=== PATIENT | female | born 1945 | race Caucasian/White ===

== ENCOUNTER 2017-10-27 08:15 | Outpatient (CLI) | payer MEDICARE ==
[2017-10-27 11:06] LABS: BASOPHILS # (AUTO) 0.1 10^3/uL (0.0-0.1); BASOPHILS % (AUTO) 1.3 %; EOSINOPHILS # (AUTO) 0.1 10^3/uL (0.0-0.7); EOSINOPHILS % (AUTO) 1.9 %; HGB - HEMOGLOBIN 12.9 g/dL (12.0-16.0); LYMPHOCYTES # (AUTO) 1.8 10^3/uL (1.5-3.5); LYMPHOCYTES % (AUTO) 22.5 %; MEAN CORPUSCULAR HEMOGLOBIN 28.7 pg (27.0-31.0); MEAN CORPUSCULAR HGB CONC 32.7 g/dL (32.0-36.0); MEAN CORPUSCULAR VOLUME 87.6 fL (81.0-99.0); MONOCYTES # (AUTO) 0.5 10^3/uL (0.0-1.0); MONOCYTES % (AUTO) 6.8 %; NEUTROPHILS # (AUTO) 5.4 10^3/uL (1.5-6.6); NEUTROPHILS % (AUTO) 67.5 %; PLT - PLATELET COUNT 369 10^3/uL (130-450); RED CELL DISTRIBUTION WIDTH 16.3 % (12.0-15.0)
[2017-10-27 11:25] LABS: ALBUMIN 4.6 g/dL (3.2-5.5); ALBUMIN/GLOBULIN RATIO 1.5 (1.0-2.2); ALKALINE PHOSPHATASE 72 IU/L (42-121); ALT ALANINE AMINOTRANSFERASE 15 IU/L (10-60); AST ASPARTATE AMINOTRANSFERASE 22 IU/L (10-42); BILIRUBIN,TOTAL 0.7 mg/dL (0.2-1.0); BUN - BLOOD UREA NITROGEN 12 mg/dL (6-20); CALCIUM 9.5 mg/dL (8.5-10.3); CARBON DIOXIDE - CO2 28 mmol/L (21-32); CHLORIDE 100 mmol/L (101-111); CHOL/HDL RATIO 3.7 (<4.4); CHOLESTEROL 237 mg/dL; CREATININE 0.6 mg/dL (0.4-1.0); GFR - MDRD 99 (>89); GLUCOSE 100 mg/dL (70-100); HDL CHOLESTEROL 64 mg/dL; LDL CHOLESTEROL,CALCULATED 146 mg/dL; LDL/HDL RATIO 2.3 (<4.4); SODIUM 136 mmol/L (135-145); TOTAL PROTEIN 7.6 g/dL (6.7-8.2); VLDL CHOLESTEROL 27 mg/dL
== END 2017-10-27 08:16 | disposition home or self-care (01) ==
LOC: LAB.F 08:15
PROVIDERS: ATTEND Family Medicine
DX: E87.6 Hypokalemia (principal); E78.5 Hyperlipidemia, unspecified; Z86.2 Personal history of diseases of the blood and blood-forming organs and certain disorders involving the immune mechanism; I10 Essential (primary) hypertension; K21.9 Gastro-esophageal reflux disease without esophagitis
CPT/HCPCS: 36415; 80053; 80061; 83721; 84443; 85025

== ENCOUNTER 2017-11-03 12:42 | Outpatient (CLI) | payer MEDICARE ==
--- NOTE | 2017-11-03 15:42 | XRAY Report ---
Procedure Date: 11/03/2017 Accession Number: [id number] / [id number] Procedure: XRS - Hip w/Pelvis 2-3V LT CPT Code: FULL RESULT: EXAM: LEFT HIP AND PELVIS RADIOGRAPHY EXAM DATE: 11/03/2017 12:59 PM. HISTORY: Hip pain, left. COMPARISONS: None. TECHNIQUE: 1 view of the pelvis and 1 view of the hip. FINDINGS: Bones: Normal. No fracture or bone lesion. Joints: There is bilateral narrowing of the femoral acetabular joints. 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 The sacroiliac joints and pubic symphysis are unremarkable. Soft Tissues: Normal. No soft tissue swelling. IMPRESSION: Degenerative changes with question of femoral acetabular impingement syndrome on the left as described. RADIA
== END 2017-11-03 12:43 | disposition home or self-care (01) ==
LOC: DI.S 12:42
PROVIDERS: ATTEND Family Medicine
DX: M16.12 Unilateral primary osteoarthritis, left hip (principal)

== ENCOUNTER 2017-11-14 08:00 | Outpatient (CLI) | payer MEDICARE | END 2017-11-14 08:01 | disposition home or self-care (01) | LOC: LAB.R 08:00 | PROVIDERS: ATTEND Internal Medicine Gastroenterology | DX: R19.7 Diarrhea, unspecified (principal) | CPT/HCPCS: 81599; 87493 ==

== ENCOUNTER 2018-01-19 10:12 | Outpatient (CLI) | payer MEDICARE ==
[2018-01-19] MEDS ORDERED: IOTHALAMATE MEGLUMINE 50 ML VIAL ONE (10:19)
[2018-01-19] MEDS ORDERED: BUPIVACAINE 0.25% PF 10 ML VIAL SUBQ ONE ×2 (11:06)
[2018-01-19] MEDS ORDERED: IOTHALAMATE MEGLUMINE 50 ML VIAL IVP ONE ×2 (11:06)
[2018-01-19] MEDS ORDERED: TRIAMCINOLONE 40 MG/ML VIAL IM ONE (11:06)
--- NOTE | 2018-02-05 16:09 | XRAY Report ---
Reason: HIP PAIN,LEFT Procedure Date: 01/19/2018 Accession Number: [id number] / [id number] Procedure: [place] - Inj/Aspiration Major Joint CPT Code: FULL RESULT: EXAM: LEFT HIP FLUOROSCOPIC INJECTION FOR PAIN EXAM DATE: 01/19/2018 11:02 AM. REFERRING PROVIDER: Doni Mauricio CLINICAL HISTORY: HIP PAIN, LEFT. COMPARISON: None. TECHNIQUE: The risks, benefits and alternatives of this examination were discussed in detail with the patient and her daughter. Risks of bleeding, infection, and increasing discomfort in the left hip joint were included in the discussion. The patient appeared to understand, and signed, dated, and timed an informed consent document, which was also signed by me and a witness. The skin was prepped with chlorhexidine gluconate and draped in the usual sterile manner, and 5 mL of 1% buffered lidocaine was used for local analgesia. Under fluoroscopic control, a 22-gauge needle was placed into the left hip joint capsule. After achieving low resistance to the injection of lidocaine, 1 mL of iodine-based radiographic contrast was injected. Then a combination of 5 mL of 0.5% ropivacaine and 1 mL (40 mg) of Depo-Medrol was injected without difficulty. The needle was removed, and the patient was released. The patient and daughter were instructed in the potential signs and symptoms for infection or septic arthritis. The patient was asked to call the referring physician or go to the emergency room if these signs and symptoms should appear. Fluoroscopy Time: 21 seconds. Number of Images: 1 IMPRESSION: Successful injection of left hip for pain relief as noted above. RADIA
== END 2018-01-19 10:13 | disposition home or self-care (01) ==
LOC: DI 10:12
PROVIDERS: ATTEND Orthopaedic Surgery Sports Medicine
DX: M25.552 Pain in left hip (principal)
CPT/HCPCS: 20610; Q9961

== ENCOUNTER 2018-02-19 15:16 | Outpatient (CLI) | payer MEDICARE ==
--- NOTE | 2018-02-20 08:44 | Mammography Report ---
Reason: SCREENING MAMMO Procedure Date: 02/19/2018 Accession Number: [id number] / [id number] Procedure: JENIFER - Screening Mammo w/Justin CPT Code: FULL RESULT: EXAM: Screening Mammo w/Justin DATE: 02/19/2018 3:55 PM CLINICAL HISTORY: Screening encounter. History of early menses. TECHNIQUE: Bilateral CC and MLO views were obtained. COMPARISON: 01/23/2017 through 07/06/2013. FINDINGS: The breasts demonstrate diffuse fatty replacement bilaterally. No suspicious masses, clustered microcalcifications, or regions of architectural distortion are identified. IMPRESSION: Negative examination RECOMMENDATION: Routine annual screening unless otherwise clinically indicated. BIRADS CATEGORY 1: Negative STANDARD QUALIFYING STATEMENTS: 1. This examination was not reviewed with the aid of Computer-Aided Detection (CAD). 2. A negative or benign imaging report should not preclude biopsy if clinically suspicious findings are present. 3. Dense breasts may obscure an underlying neoplasm. 4. This examination was reviewed with the aid of 3D breast imaging (tomosynthesis).
== END 2018-02-19 15:17 | disposition home or self-care (01) ==
LOC: DI 15:16
DX: Z12.31 Encounter for screening mammogram for malignant neoplasm of breast (principal)
CPT/HCPCS: 77063; 77067

== ENCOUNTER 2019-08-07 16:38 | Outpatient (CLI) | payer MEDICARE | END 2019-08-07 16:39 | disposition home or self-care (01) | LOC: COV 16:38 | PROVIDERS: ATTEND Family Medicine | DX: M79.10 Myalgia, unspecified site (principal); R53.83 Other fatigue; R68.83 Chills (without fever); R43.8 Other disturbances of smell and taste | CPT/HCPCS: 81599 ==

== ENCOUNTER 2019-08-09 07:00 | Outpatient (CLI) | payer MEDICARE ==
[2019-08-09 18:11] LABS: BASOPHILS # (AUTO) 0.1 10^3/uL (0.0-0.1); BASOPHILS % (AUTO) 0.8 %; EOSINOPHILS # (AUTO) 0.1 10^3/uL (0.0-0.7); EOSINOPHILS % (AUTO) 0.7 %; HGB - HEMOGLOBIN 11.3 g/dL (12.0-16.0); LYMPHOCYTES # (AUTO) 1.5 10^3/uL (1.5-3.5); MEAN CORPUSCULAR HEMOGLOBIN 27.5 pg (27.0-31.0); MEAN CORPUSCULAR HGB CONC 30.5 g/dL (32.0-36.0); MONOCYTES # (AUTO) 0.6 10^3/uL (0.0-1.0); MONOCYTES % (AUTO) 6.4 %; NEUTROPHILS # (AUTO) 6.8 10^3/uL (1.5-6.6); NEUTROPHILS % (AUTO) 74.8 %; PLT - PLATELET COUNT 658 10^3/uL (130-450); RED BLOOD COUNT 4.11 10^6/uL (4.20-5.40); RED CELL DISTRIBUTION WIDTH 13.8 % (12.0-15.0); WHITE BLOOD COUNT 9.1 x10^3/uL (4.8-10.8)
[2019-08-09 18:41] LABS: ALBUMIN/GLOBULIN RATIO 1.1 (1.0-2.2); ALKALINE PHOSPHATASE 90 IU/L (42-121); ALT ALANINE AMINOTRANSFERASE < 10 IU/L (10-60); AST ASPARTATE AMINOTRANSFERASE 12 IU/L (10-42); BILIRUBIN,TOTAL 0.4 mg/dL (0.2-1.0); BUN - BLOOD UREA NITROGEN 13 mg/dL (6-20); CALCIUM 9.3 mg/dL (8.5-10.3); CARBON DIOXIDE - CO2 25 mmol/L (21-32); CHLORIDE 95 mmol/L (101-111); CREATININE 0.7 mg/dL (0.4-1.0); GLUCOSE 113 mg/dL (70-100); SODIUM 132 mmol/L (135-145); TOTAL PROTEIN 7.7 g/dL (6.7-8.2)
== END 2019-08-09 23:59 | disposition home or self-care (01) ==
LOC: LAB.WCP 07:00
PROVIDERS: ATTEND Family Medicine
DX: K51.90 Ulcerative colitis, unspecified, without complications (principal); R19.7 Diarrhea, unspecified
CPT/HCPCS: 36415; 80053; 85025; 85651

== ENCOUNTER 2019-08-14 05:35 | Outpatient (CLI) | payer MEDICARE | END 2019-08-14 23:59 | disposition home or self-care (01) | LOC: LAB.R 05:35 | PROVIDERS: ATTEND Family Medicine | DX: K51.90 Ulcerative colitis, unspecified, without complications (principal) | CPT/HCPCS: 81599; 83630; 87045; 87046; 87329; 87493 ==

== ENCOUNTER 2019-09-11 15:31 | Outpatient (CLI) | payer MEDICARE ==
[2019-09-11 20:11] LABS: BASOPHILS # (AUTO) 0.1 10^3/uL (0.0-0.1); BASOPHILS % (AUTO) 0.8 %; EOSINOPHILS # (AUTO) 0.1 10^3/uL (0.0-0.7); EOSINOPHILS % (AUTO) 0.8 %; HGB - HEMOGLOBIN 10.8 g/dL (12.0-16.0); LYMPHOCYTES # (AUTO) 1.5 10^3/uL (1.5-3.5); MEAN CORPUSCULAR HEMOGLOBIN 28.3 pg (27.0-31.0); MEAN CORPUSCULAR VOLUME 91.1 fL (81.0-99.0); MEAN PLATELET VOLUME 9.1 fL (7.9-10.8); MONOCYTES # (AUTO) 0.7 10^3/uL (0.0-1.0); MONOCYTES % (AUTO) 7.9 %; NEUTROPHILS # (AUTO) 6.1 10^3/uL (1.5-6.6); NEUTROPHILS % (AUTO) 72.1 %; PLT - PLATELET COUNT 501 10^3/uL (130-450); RED BLOOD COUNT 3.82 10^6/uL (4.20-5.40); RED CELL DISTRIBUTION WIDTH 14.6 % (12.0-15.0); WHITE BLOOD COUNT 8.4 x10^3/uL (4.8-10.8)
[2019-09-11 20:16] LABS: RHEUMATOID FACTOR NEGATIVE (Negative)
[2019-09-11 20:27] LABS: ALBUMIN 3.7 g/dL (3.2-5.5); ALKALINE PHOSPHATASE 83 IU/L (42-121); ALT ALANINE AMINOTRANSFERASE < 10 IU/L (10-60); AST ASPARTATE AMINOTRANSFERASE 13 IU/L (10-42); BILIRUBIN,TOTAL 0.5 mg/dL (0.2-1.0); BUN - BLOOD UREA NITROGEN 13 mg/dL (6-20); CALCIUM 9.2 mg/dL (8.5-10.3); CARBON DIOXIDE - CO2 28 mmol/L (21-32); CHLORIDE 95 mmol/L (101-111); CREATININE 0.6 mg/dL (0.4-1.0); CRP - C-REACTIVE PROTEIN 5.7 mg/dL (0-1.0); GLUCOSE 110 mg/dL (70-100); SODIUM 133 mmol/L (135-145); TOTAL PROTEIN 7.4 g/dL (6.7-8.2)
[2019-09-14 19:39] LABS: ANA SCREEN NEGATIVE (NEGATIVE)
== END 2019-09-11 15:32 | disposition home or self-care (01) ==
LOC: LAB.S 15:31
PROVIDERS: ATTEND Family Medicine
DX: R70.0 Elevated erythrocyte sedimentation rate (principal); M17.0 Bilateral primary osteoarthritis of knee; K51.90 Ulcerative colitis, unspecified, without complications; M19.071 Primary osteoarthritis, right ankle and foot; M19.012 Primary osteoarthritis, left shoulder
CPT/HCPCS: 36415; 80053; 85025; 85651; 86038; 86140; 86200; 86430

== ENCOUNTER 2019-09-29 15:55 | Emergency (ER) | payer MEDICARE ==
[2019-09-29 16:30] LABS: BASOPHILS # (AUTO) 0.1 10^3/uL (0.0-0.1); BASOPHILS % (AUTO) 0.5 %; EOSINOPHILS # (AUTO) 0.2 10^3/uL (0.0-0.7); EOSINOPHILS % (AUTO) 1.7 %; HGB - HEMOGLOBIN 10.6 g/dL (12.0-16.0); LYMPHOCYTES # (AUTO) 1.5 10^3/uL (1.5-3.5); LYMPHOCYTES % (AUTO) 14.7 %; MEAN CORPUSCULAR HEMOGLOBIN 28.6 pg (27.0-31.0); MEAN CORPUSCULAR HGB CONC 31.8 g/dL (32.0-36.0); MEAN CORPUSCULAR VOLUME 89.8 fL (81.0-99.0); MEAN PLATELET VOLUME 8.7 fL (7.9-10.8); MONOCYTES # (AUTO) 0.9 10^3/uL (0.0-1.0); MONOCYTES % (AUTO) 8.5 %; NEUTROPHILS # (AUTO) 7.5 10^3/uL (1.5-6.6); NEUTROPHILS % (AUTO) 74.1 %; PLT - PLATELET COUNT 429 10^3/uL (130-450); RED BLOOD COUNT 3.71 10^6/uL (4.20-5.40); RED CELL DISTRIBUTION WIDTH 14.8 % (12.0-15.0); WHITE BLOOD COUNT 10.2 x10^3/uL (4.8-10.8)
[2019-09-29] MEDS ORDERED: SODIUM CHLORIDE 0.9% 1,000 ML IV STA ×2 (16:30)
--- NOTE | 2019-09-29 16:38 | ED Physician Documentation ---
History of Present Illness - Stated complaint Stated Complaint: LIGHTHEADED/DIZZY/SOA - Chief complaint Chief Complaint: General - History obtained from History obtained from: Patient, Family - History of Present Illness Pain level max: 0 Pain level now: 0 - Additonal information Additional information: 73-year-old female presents to the emergency department stating that she has had intermittent lightheadedness for the past several months. Occasionally has difficulty breathing as well. She states that her dizziness lasted all morning this morning. Does not feel like things are spinning around her. Does not feel off balance or have neurological deficits. She states she feels more near syncopal and lightheaded. No changes to her medications recently. Has seen her doctor about this. She states that she has a cystic structure in her left ovary and a cyst in her liver. She is currently being worked up for these things. She had her potassium increased recently as well. Better with rest, worse with standing. No recent surgeries or travel. No leg swelling. Review of Systems Ten Systems: 10 systems reviewed and negative Constitutional: denies: Fever, Chills Nose: denies: Rhinorrhea / runny nose, Congestion Throat: denies: Sore throat Respiratory: denies: Cough Skin: denies: Rash Musculoskeletal: denies: Neck pain, Back pain Neurologic: denies: Headache PD PAST MEDICAL HISTORY - Past Medical History Past Medical History: Yes Cardiovascular: Hypertension - Present Medications Home Medications: Ambulatory Orders Medication Instructions Recorded Confirmed Cephalexin [Keflex] 500 mg PO Q6H #20 capsule 09/29/19 - Allergies Allergies/Adverse Reactions: Allergies Allergy/AdvReac Type Severity Reaction Status Date / Time No Known Drug Allergies Allergy Verified 09/29/19 16:14 - Living Situation Living Situation: reports: With family Living Arrangement: reports: At home - Social History Does the pt smoke?: No Does the pt have substance abuse?: No - Family History Family history: reports: Non contributory PD ED PE NORMAL - Vitals Vital signs reviewed: Yes - General General: Alert and oriented X 3, No acute distress - HEENT HEENT: Atraumatic, PERRL, EOMI, Moist mucous membranes - Neck Neck: Supple, no meningeal sign - Cardiac Cardiac: Other (Tachycardic, Regular) - Respiratory Respiratory: No respiratory distress, Clear bilaterally - Abdomen Abdomen: Soft, Non tender, Non distended - Back Back: No CVA TTP, No spinal TTP - Derm Derm: Warm and dry - Extremities Extremities: No edema, No calf tenderness / cord - Neuro Neuro: Alert and oriented X 3, fibre technologist 2-12 intact, No motor deficit, No sensory deficit, Normal speech, Other (Normal gait. Normal cerebellar test.) Eye Opening: Spontaneous Motor: Obeys Commands Verbal: Oriented GCS Score: 15 - Psych Psych: Normal mood, Normal affect Results - Vitals Vitals: Vital Signs - 24 hr 09/29/19 09/29/19 16:06 18:14 Temperature 36.8 C Heart Rate 115 H 96 Respiratory 18 20 Rate Blood Pressure 195/87 H 160/90 H O2 Saturation 99 100 Oxygen O2 Source Room air - EKG (time done) 1602 Rate: Rate (enter#) (107) Rhythm: Sinus tachycardia [place]: Normal Intervals: Normal DC QRS: Normal Ischemia: Normal ST segments - Labs Labs: Laboratory Tests 09/29/19 09/29/19 09/29/19 16:20 16:20 16:20 WBC 10.2 RBC 3.71 L Hgb 10.6 L Hct 33.3 L MCV 89.8 MCH 28.6 MCHC 31.8 L RDW 14.8 Plt Count 429 MPV 8.7 Neut # (Auto) 7.5 H Lymph # (Auto) 1.5 [place] # (Auto) 0.9 Eos # (Auto) 0.2 Baso # (Auto) 0.1 Absolute Nucleated RBC 0.00 Nucleated RBC % 0.0 Sodium 134 L Potassium 3.2 L Chloride 99 L Carbon Dioxide 25 Anion Gap 10.0 BUN 15 Creatinine 0.6 Estimated GFR (MDRD) 98 Glucose 120 H Calcium 9.0 Phosphorus 3.1 Magnesium 2.2 Total Bilirubin 0.4 AST 15 ALT 12 Alkaline Phosphatase 96 Troponin I High Sens 2.7 Total Protein 7.5 Albumin 3.6 Globulin 3.9 Albumin/Globulin Ratio 0.9 L Lipase 26 TSH Free T4 Urine Color Urine Clarity Urine pH Ur Specific [place] Urine Protein Urine Glucose (UA) Urine Ketones Urine Occult Blood Urine Nitrite Urine Bilirubin Urine Urobilinogen Ur Leukocyte Esterase Urine RBC Urine WBC Ur Squamous Epith Cells Urine Bacteria Ur Microscopic Review Urine Culture Comments 09/29/19 09/29/19 16:20 17:26 WBC RBC Hgb Hct MCV MCH MCHC RDW Plt Count MPV Neut # (Auto) Lymph # (Auto) [place] # (Auto) Eos # (Auto) Baso # (Auto) Absolute Nucleated RBC Nucleated RBC % Sodium Potassium Chloride Carbon Dioxide Anion Gap BUN Creatinine Estimated GFR (MDRD) Glucose Calcium Phosphorus Magnesium Total Bilirubin AST ALT Alkaline Phosphatase Troponin I High Sens Total Protein Albumin Globulin Albumin/Globulin Ratio Lipase TSH 2.34 Free T4 1.15 Urine Color LIGHT YELLOW Urine Clarity HAZY Urine pH 5.5 Ur Specific [place] <=1.005 Urine Protein NEGATIVE Urine Glucose (UA) NEGATIVE Urine Ketones NEGATIVE Urine Occult Blood TRACE-LYSE Urine Nitrite NEGATIVE Urine Bilirubin NEGATIVE Urine Urobilinogen 0.2 (NORMAL) Ur Leukocyte Esterase SMALL H Urine RBC 0-5 Urine WBC 6-10 H Ur Squamous Epith Cells NONE SEEN Urine Bacteria Rare Ur Microscopic Review INDICATED Urine Culture Comments INDICATED - Rads (name of study) CT pulmonary angiogram Radiology: Prelim report reviewed, EMP read contemporaneously, See rad report (No PE) Chest x-ray Radiology: Prelim report reviewed, EMP read contemporaneously, See rad report (No acute disease) PD MEDICAL DECISION MAKING - ED course Complexity details: reviewed results, re-evaluated patient, considered differential, d/w patient, d/w family ED course: Patient with lightheadedness today. No arrhythmias on telemetry. Did have sinus tachycardia upon arrival, this improved with IV fluids. Concern regarding the tachycardia and dyspnea over the past few weeks, therefore a CT pulmonary angiogram was performed to rule out a PE. No PE. No acute findings on laboratory testing other than a UTI and some dehydration. She did feel better after IV fluids. We will prescribe antibiotics for home as well and have her follow-up with her doctor. Patient counseled regarding signs and symptoms for which I believe and urgent re-evaluation would be necessary. Patient with good understanding of and agreement to plan and is comfortable going home at this time This document was made in part using voice recognition software. While efforts are made to proofread this document, sound alike and grammatical errors may occur. Normal neurological exam. NIH stroke scale of 0 Departure - Departure Disposition: 01 Home, Self Care Clinical Impression: Dehydration UTI (urinary tract infection) Qualifiers: Urinary tract infection type: acute cystitis Hematuria presence: without hematuria Qualified Code(s): N30.00 - Acute cystitis without hematuria Condition: Good Instructions: ED Dehydration, ED UTI Cystitis Female Follow-Up: Roberto Mccrary MD [Credentialed Staff Provider] - Baldev Camara MD [Primary Care Provider] - Vincent White DO [Physician No Access] - Darrell Bynum MD [Physician No Access] - Prescriptions: Cephalexin [Keflex] 500 mg PO Q6H #20 capsule Comments: Take all antibiotics until gone. Return if you worsen. Follow-up with your doctor for further care. . Your [facility] was [facility] to [facility] in [place] Discharge Date/Time: 09/29/19 18:40
[2019-09-29 16:46] LABS: ALBUMIN 3.6 g/dL (3.2-5.5); ALBUMIN/GLOBULIN RATIO 0.9 (1.0-2.2); BILIRUBIN,TOTAL 0.4 mg/dL (0.2-1.0); CREATININE 0.6 mg/dL (0.4-1.0); MAGNESIUM 2.2 mg/dL (1.7-2.8); PHOSPHORUS 3.1 mg/dL (2.5-4.6); TOTAL PROTEIN 7.5 g/dL (6.7-8.2)
--- NOTE | 2019-09-29 16:48 | XRAY Report ---
PROCEDURE: Chest 1 View X-Ray INDICATIONS: Chest Pain TECHNIQUE: One view of the chest was acquired. COMPARISON: None FINDINGS: Surgical changes and devices: None. Lungs and pleura: There is trace blunting of the left costophrenic angle. Mediastinum: Mediastinal contours appear normal. Heart size is mildly prominent. Bones and chest wall: No suspicious bony lesions. Overlying soft tissues appear unremarkable. IMPRESSION: Trace left costophrenic angle blunting possibly related to effusion versus scarring. Reviewed by: Sunita Nguyen MD on 09/29/2019 4:46 PM PDT Approved by: Sunita Nguyen MD on 09/29/2019 4:46 PM PDT Station ID: [id number]
[2019-09-29] MEDS ORDERED: IOVERSOL 320 100 ML VIAL IVP ONE ×2 (17:04→18:15)
--- NOTE | 2019-09-29 17:38 | CT Report ---
PROCEDURE: ANGIO CHEST W/WO INDICATIONS: dyspnea, tachycardia CONTRAST: IV CONTRAST: Optiray 320 ml: 100 PO CONTRAST: *NO PO CONTRAST TECHNIQUE: After the administration of intravenous contrast, 2 mm thick sections acquired from the pulmonary api dejah to the posterior costophrenic angles. 3-dimensional maximum intensity projection (MIP) coronal a nd sagittal reformats were then acquired through the thorax. For radiation dose reduction, the follow ing was used: automated exposure control, adjustment of mA and/or kV according to patient size. COMPARISON: Chest x-ray 09/29/2019. FINDINGS: Image quality: Excellent. Pulmonary arteries: Pulmonary arteries are normal in size, and demonstrate no intraluminal filling d efects to suggest central pulmonary embolism. Lungs and pleura: Lungs are clear. No pleural effusions or pneumothorax. Central and peripheral ai rways are patent. Mediastinum: Heart size is enlarged, without pericardial effusion. No mediastinal or hilar adenopat hy. Thoracic aorta is normal in caliber and enhancement. Esophagus is normal in caliber, without hi atal hernia. Bones and chest wall: No suspicious bony lesions. Ribs and thoracic spine appear intact throughout. The thyroid is normal. No axillary or supraclavicular adenopathy. Abdomen: Visualized upper abdominal solid organs appear normal in the early arterial phase of enhanc ement. IMPRESSION: 1. No pulmonary embolism. Lungs are clear. Reviewed by: Sunita Nguyen MD on 09/29/2019 5:37 PM PDT Approved by: Sunita Nguyen MD on 09/29/2019 5:37 PM PDT Station ID: [id number]
[2019-09-29 17:42] LABS: BILIRUBIN,URINE NEGATIVE (NEGATIVE); GLUCOSE, URINE (UA) NEGATIVE (NEGATIVE); KETONES,URINE (UA) NEGATIVE (NEGATIVE); LEUKOCYTE ESTERASE, URINE SMALL (NEGATIVE); NITRITE,URINE NEGATIVE (NEGATIVE); OCCULT BLOOD,URINE TRACE-LYSE (NEGATIVE); PH,URINE 5.5 PH (5.0-7.5); PROTEIN,URINE NEGATIVE (NEGATIVE); UROBILINOGEN,URINE 0.2 (NORMAL) E.U./dL (NORMAL)
[2019-09-29 17:52] LABS: CLARITY,URINE HAZY (CLEAR)
[2019-09-29 17:57] LABS: RBC,URINE 0-5 /HPF (0-5); SQUAMOUS EPITHELIAL CELL,UR NONE SEEN (<= Few)
[2019-09-29 17:58] LABS: BACTERIA,URINE Rare /HPF (None Seen)
[2019-09-29 18:13] LABS: THYROID STIMULATING HORMONE 2.34 uIU/mL (0.34-5.60)
[2019-09-29] MEDS ORDERED: cephALEXin 250 MG CAPSULE PO STA (18:13)
[2019-09-29 18:15] LABS: FREE T4 (FREE THYROXINE) 1.15 ng/dL (0.58-1.64)
[2019-09-29 18:33] VITALS: BP 160/90
== END 2019-09-29 18:40 | disposition home or self-care (01) ==
LOC: ED 15:55
DX: E86.0 Dehydration (principal); N30.00 Acute cystitis without hematuria; R00.0 Tachycardia, unspecified; I10 Essential (primary) hypertension
CPT/HCPCS: 36415; 71045; 71275; 80053; 81001; 83690; 83735; 84100; 84439; 84443; 84484; 85025; 93005; 96360; 96361; 99284; A9270; Q9967; 81003; 87086

== ENCOUNTER 2019-10-02 11:54 | Emergency (ER) | payer MEDICARE ==
--- NOTE | 2019-10-02 12:32 | ED Physician Documentation ---
History of Present Illness - Stated complaint Stated Complaint: WEAKNESS/SOA - Chief complaint Chief Complaint: General - History obtained from History obtained from: Patient, Family - Additonal information Additional information: 73-year-old female returns to the emergency department with quite a lengthy list of concerns. She was seen here 3 days ago with a complaint of feeling weak fatigued and dizzy. She reports to me that she was diagnosed as being severely dehydrated and that she had a UTI. She was prescribed Keflex on discharge and reports compliance with this medication. In addition to routine labs while in the ED 3 days ago she also had a CT angio of her chest that did not show any pulmonary embolus. Patient reports that she feels short of air. However her sats are 99% and she speaks almost without stopping. She reports that she has discussed with her doctor in the past the right foot and ankle swelling and she is concerned that she could have a blood clot there. I discussed the possibility of obtaining an ultrasound to evaluate for DVT in the ED, however she does not want to wait more than an hour or two for her work up to be completed. I did discuss with her that the CT ago 3 days ago was negative for a pulmonary embolus She states that she is unable to drink twelve 12 ounce glasses of water a day and is requesting hydration via saline infusion It seems the root of her etiology is that she feels fatigued, dizzy, and is not sure that the UTI is getting better and she is concerned that she may be dehydrated Review of Systems Constitutional: reports: Fatigue. denies: Fever, Chills Cardiac: reports: Pedal edema (right foot only). denies: Chest pain / pressure, Palpitations Respiratory: reports: Dyspnea. denies: Cough, Hemoptysis, Wheezing GI: reports: Nausea. denies: Abdominal Pain, Vomiting, Diarrhea, Hematemesis, Bloody / black stool : denies: Dysuria, Incontinent Skin: denies: Rash, Lesions Musculoskeletal: denies: Neck pain, Back pain Neurologic: reports: Generalized weakness. denies: Focal weakness, Numbness, Difficulty speaking, Near syncope, Syncope, Seizure, Confused PD PAST MEDICAL HISTORY - Past Medical History Past Medical History: Yes Cardiovascular: Hypertension Neuro: None HEENT: None - Present Medications Home Medications: Ambulatory Orders Medication Instructions Recorded Confirmed Cephalexin [Keflex] 500 mg PO Q6H #20 capsule 09/29/19 - Allergies Allergies/Adverse Reactions: Allergies Allergy/AdvReac Type Severity Reaction Status Date / Time No Known Drug Allergies Allergy Verified 10/02/19 12:12 - Social History Does the pt smoke?: No Smoking Status: Never smoker Does the pt have substance abuse?: No PD ED PE EXPANDED - General General: Alert, No acute distress, Well developed/nourished - HEENT HEENT: Atraumatic, PERRL, EOMI, Moist mucous membranes - Neck Neck: Supple w/out meningeal sx. No: Adenopathy - Cardiac Cardiac: Regular Rate, Normal pulses, Radial strong equal, Femoral strong equal, Cap refill < 2 sec. No: Murmur Present - Respiratory Respiratory: Clear to ausultation gwen. No: Distress, Stridor, Gasping - Abdomen Abdomen: Normal Bowel sounds. No: Distended, Tender to palpation - Back Back: Normal exam. No: CVA TTP right, CVA TTP left - Derm Derm: Normal color, Warm and dry. No: Urticaria, Emboli - Extremities Extremities: Pedal edema R, Sensory intact, Vascular intact (2+ DP pulses bilaterally) - Neuro Neuro: Alert and Oriented X 3, CNII-XII intact. No: Weakness - GCS Eye Opening: Spontaneous Motor: Obeys Commands Verbal: Oriented Total: 15 Results - Vitals Vitals: Vital Signs - 24 hr 10/02/19 11:56 Temperature 36.5 C Heart Rate 96 Respiratory 16 Rate Blood Pressure 175/91 H O2 Saturation 100 Oxygen O2 Source Room air - EKG (time done) 1232 Rate: Rate (enter#) (102), Tachy Rhythm: Sinus tachycardia [place]: Normal Intervals: Normal [place] QRS: Normal Ischemia: Normal ST segments Compare to prior EKG: Unchanged from prior EKG Computer interpretation: Agree with computer - Labs Labs: Laboratory Tests 10/02/19 10/02/19 10/02/19 12:53 13:02 13:02 WBC 9.3 RBC 3.76 L Hgb 10.7 L Hct 33.9 L MCV 90.2 MCH 28.5 MCHC 31.6 L RDW 14.6 Plt Count 434 MPV 8.8 Neut # (Auto) 7.3 H Lymph # (Auto) 1.1 L [place] # (Auto) 0.7 Eos # (Auto) 0.1 Baso # (Auto) 0.1 Absolute Nucleated RBC 0.00 Nucleated RBC % 0.0 Sodium 134 L Potassium 3.4 L Chloride 98 L Carbon Dioxide 24 Anion Gap 12.0 BUN 10 Creatinine 0.7 Estimated GFR (MDRD) 82 L Glucose 119 H Calcium 9.0 Total Bilirubin 0.7 AST 15 ALT 11 Alkaline Phosphatase 87 Troponin I High Sens B-Natriuretic Peptide Total Protein 7.5 Albumin 3.5 Globulin 4.0 Albumin/Globulin Ratio 0.9 L Lipase 25 Urine Color YELLOW Urine Clarity CLEAR Urine pH 8.0 H Ur Specific [place] 1.010 Urine Protein NEGATIVE Urine Glucose (UA) NEGATIVE Urine Ketones NEGATIVE Urine Occult Blood NEGATIVE Urine Nitrite NEGATIVE Urine Bilirubin NEGATIVE Urine Urobilinogen 0.2 (NORMAL) Ur Leukocyte Esterase NEGATIVE Ur Microscopic Review NOT INDICATED Urine Culture Comments NOT INDICATED 10/02/19 10/02/19 13:02 13:02 WBC RBC Hgb Hct MCV MCH MCHC RDW Plt Count MPV Neut # (Auto) Lymph # (Auto) [place] # (Auto) Eos # (Auto) Baso # (Auto) Absolute Nucleated RBC Nucleated RBC % Sodium Potassium Chloride Carbon Dioxide Anion Gap BUN Creatinine Estimated GFR (MDRD) Glucose Calcium Total Bilirubin AST ALT Alkaline Phosphatase Troponin I High Sens 2.3 B-Natriuretic Peptide 23 Total Protein Albumin Globulin Albumin/Globulin Ratio Lipase Urine Color Urine Clarity Urine pH Ur Specific [place] Urine Protein Urine Glucose (UA) Urine Ketones Urine Occult Blood Urine Nitrite Urine Bilirubin Urine Urobilinogen Ur Leukocyte Esterase Ur Microscopic Review Urine Culture Comments PD MEDICAL DECISION MAKING - ED course Complexity details: reviewed results, re-evaluated patient, d/w patient, d/w family ED course: 73-year-old female returns to the emergency department with a chief complaint that she feels fatigued and dizzy. She is unsure if the antibiotics are effective in managing her urinary tract infection. She is concerned that she may be dehydrated. - Patient appears remarkably well. She has no dyspnea on exam. Her vital signs are also fairly normal. She presented with some initial mild tachycardia on EKG but after rest in the ED her resting heart rate is in the 80s and 90s. CT scan completed 3 days ago showed no findings of a pulmonary embolus. No indication to repeat imaging today - Her labs are reviewed in full. Though she has mild pedal edema on the right leg she declined an ultrasound today as she did not want to wait in the emergency department for imaging. However my suspicion for a DVT in her is exceedingly low. Her BNP is normal she has no crackles or hypoxia I doubt congestive heart failure. - Her urine also shows improvement from 3 days ago. I have recommended that she continue the course of Keflex and that she should finish the entire course - Neurologically she is intact. She has close follow-up scheduled with her primary care doctor in 4 days time. Departure - Departure Disposition: 01 Home, Self Care Clinical Impression: Pedal edema Fatigue Qualifiers: Fatigue type: unspecified Qualified Code(s): R53.83 - Other fatigue Condition: Stable Comments: Rhonda your labs today are essentially normal. You are well hydrated. Good job keep drinking the water like you are.Please finish the full course of the antibiotics. Your urine today shows that the infection is improved.
[2019-10-02 13:07] LABS: BILIRUBIN,URINE NEGATIVE (NEGATIVE); GLUCOSE, URINE (UA) NEGATIVE (NEGATIVE); KETONES,URINE (UA) NEGATIVE (NEGATIVE); LEUKOCYTE ESTERASE, URINE NEGATIVE (NEGATIVE); NITRITE,URINE NEGATIVE (NEGATIVE); OCCULT BLOOD,URINE NEGATIVE (NEGATIVE); PROTEIN,URINE NEGATIVE (NEGATIVE); UROBILINOGEN,URINE 0.2 (NORMAL) E.U./dL (NORMAL)
[2019-10-02 13:08] LABS: CLARITY,URINE CLEAR (CLEAR)
[2019-10-02 13:11] LABS: BASOPHILS # (AUTO) 0.1 10^3/uL (0.0-0.1); BASOPHILS % (AUTO) 0.6 %; EOSINOPHILS # (AUTO) 0.1 10^3/uL (0.0-0.7); EOSINOPHILS % (AUTO) 1.5 %; HGB - HEMOGLOBIN 10.7 g/dL (12.0-16.0); LYMPHOCYTES # (AUTO) 1.1 10^3/uL (1.5-3.5); LYMPHOCYTES % (AUTO) 11.8 %; MEAN CORPUSCULAR HEMOGLOBIN 28.5 pg (27.0-31.0); MEAN CORPUSCULAR HGB CONC 31.6 g/dL (32.0-36.0); MEAN CORPUSCULAR VOLUME 90.2 fL (81.0-99.0); MEAN PLATELET VOLUME 8.8 fL (7.9-10.8); MONOCYTES # (AUTO) 0.7 10^3/uL (0.0-1.0); MONOCYTES % (AUTO) 7.2 %; NEUTROPHILS # (AUTO) 7.3 10^3/uL (1.5-6.6); NEUTROPHILS % (AUTO) 78.5 %; PLT - PLATELET COUNT 434 10^3/uL (130-450); RED BLOOD COUNT 3.76 10^6/uL (4.20-5.40); RED CELL DISTRIBUTION WIDTH 14.6 % (12.0-15.0); WHITE BLOOD COUNT 9.3 x10^3/uL (4.8-10.8)
[2019-10-02 13:31] LABS: ALBUMIN 3.5 g/dL (3.2-5.5); ALBUMIN/GLOBULIN RATIO 0.9 (1.0-2.2); BILIRUBIN,TOTAL 0.7 mg/dL (0.2-1.0); CREATININE 0.7 mg/dL (0.4-1.0); TOTAL PROTEIN 7.5 g/dL (6.7-8.2)
[2019-10-02 13:51] VITALS: BP 140/60
== END 2019-10-02 14:02 | disposition home or self-care (01) ==
LOC: ED 11:54
DX: R53.83 Other fatigue (principal); R42 Dizziness and giddiness; R00.0 Tachycardia, unspecified; I10 Essential (primary) hypertension; R60.0 Localized edema
CPT/HCPCS: 36415; 80053; 81001; 81003; 83690; 83880; 84484; 85025; 87086; 93005; 99283

== ENCOUNTER 2019-11-05 12:44 | Outpatient (CLI) | payer MEDICARE ==
--- NOTE | 2019-11-05 16:07 | MRI Report ---
PROCEDURE: Ankle RT W/O INDICATIONS: CHRONIC RIGHT ANKLE PAIN TECHNIQUE: Noncontrast coronal and sagittal T1 spin echo and STIR; axial T1 spin echo and T2 fast spin echo with fat saturation through the right ankle. COMPARISON: Ankle radiographs dated 10/19/2019. FINDINGS: Image quality: Excellent. Bones and joints: No acute fracture. Marrow edema is present in the navicular without definite articular surface collapse. Medial chronic talar dome osteochondral defect which measures approximately 9 mm on coronal pulse seq uences. Tibiotalar joint effusion. There is diffuse hindfoot and midfoot degenerative spurring and subchondral sclerosis. Subcutaneous e reyna about the dorsal forefoot. Medial structures: Deltoid ligament not well seen, probably reflecting chronic sprain. There are nearby chronic corticat ed ossicles adjacent to the medial malleolus. Spring ligament intact. Posterior tibialis intact, although there is tenosynovitis. Flexor digitorum longus intact Flexor hallucis longus intact Posterior tibial neurovascular bundle appears normal within the tarsal tunnel, without extrinsic mass effect. Lateral structures: Anterior talofibular ligament intact. Calcaneofibular ligament intact. Posterior talofibular ligament intact. Anterior tibiofibular ligament intact. Posterior tibiofibular ligament intact. Peroneus longus normal Peroneus brevis normal. There is mild peroneal tenosynovitis. Sinus tarsi demonstrates heterogeneous appearance, with loss of the normal fat signal intensity. Anterior structures: Dorsal talonavicular ligament intact. Tibialis anterior normal Extensor hallucis longus normal. Extensor digitorum longus normal Posterior and plantar structures: Achilles tendon intact. Medial band plantar fasciitis, chronic. IMPRESSION: 9 mm medial talar dome osteochondral defect (as radiographically described). Tibiotalar joint effusio n Additional marrow edema present within the navicular raising possibility of Otherwise Veronica-Farr disease. No articular surface collapse seen. Marrow contusion in the differen tial. Posterior tibialis tenosynovitis. Medial band plantar fasciitis, chronic. Mild peroneal tenosynovitis Heterogeneous signal within the sinus tarsi raising possibility of sinus tarsi syndrome, although onl y in the appropriate clinical setting. Reviewed by: Barron Finch MD on 11/05/2019 4:06 PM PDT Approved by: Barron Finch MD on 11/05/2019 4:06 PM PDT Station ID: [id number]
== END 2019-11-05 12:45 | disposition home or self-care (01) ==
LOC: DI 12:44
PROVIDERS: ATTEND Podiatrist
DX: M21.6X1 Other acquired deformities of right foot (principal); M65.9 Synovitis and tenosynovitis, unspecified; M72.2 Plantar fascial fibromatosis; R93.6 Abnormal findings on diagnostic imaging of limbs

== ENCOUNTER 2020-02-04 11:09 | Outpatient (CLI) | payer MEDICARE ==
--- NOTE | 2020-02-04 16:12 | XRAY Report ---
PROCEDURE: Hand 2 View BILAT INDICATIONS: RHUMITOID ARTHRITIS TECHNIQUE: 2 views of the hand(s) acquired. COMPARISON: None FINDINGS: Bones: No acute fractures or dislocations. There is mild deformity of the distal third metacarpal h ead suggestive of old injury. No suspicious bony lesions. Scattered areas of moderate IP degenerativ e narrowing, slightly more prominent on the right. Mild to moderate right greater than left first CMC degenerative narrowing. Areas of scattered paratracheal or osteophytes as well as periarticular luce ncies are noted, right greater than left. Soft tissues: No suspicious soft tissue calcifications. IMPRESSION: Arthritic changes as above more prominent on the right. Reviewed by: Sunita Nguyen MD on 02/04/2020 4:11 PM PST Approved by: Sunita Nguyen MD on 02/04/2020 4:11 PM PST Station ID: [id number]
--- NOTE | 2020-02-04 16:14 | XRAY Report ---
PROCEDURE: Foot 2 View BILAT INDICATIONS: RHUMITOID ARTHRITIS TECHNIQUE: 2 views of the foot were acquired. COMPARISON: X-ray right foot 10/19/2019 scattered areas of IP degenerative narrowing relatively symmet rical. Minimal calcaneal osteophytes are present bilaterally, left greater than right. There is moder ate first MTP degenerative narrowing bilaterally. FINDINGS: Bones: No fractures or dislocations. No suspicious bony lesions. Scattered IP degenerative narrowi ng is present, mild to moderate, relatively symmetrical. Minimal periarticular osteophytes are presen t. There is a very minimal appearance of scattered periarticular lucencies particularly at the DIP rigoberto ints bilaterally. Soft tissues: No tibiotalar joint effusion. Achilles tendon appears normal. IMPRESSION: Scattered IP degenerative narrowing as above relatively symmetrical suggestive of arthritis. Reviewed by: Sunita Nguyen MD on 02/04/2020 4:13 PM PST Approved by: Sunita Nguyen MD on 02/04/2020 4:13 PM PST Station ID: [id number]
== END 2020-02-04 11:10 | disposition home or self-care (01) ==
LOC: DI.S 11:09
PROVIDERS: ATTEND Internal Medicine Rheumatology
DX: M18.0 Bilateral primary osteoarthritis of first carpometacarpal joints (principal); M19.042 Primary osteoarthritis, left hand; M19.041 Primary osteoarthritis, right hand; M19.072 Primary osteoarthritis, left ankle and foot; M19.071 Primary osteoarthritis, right ankle and foot

== ENCOUNTER 2020-03-23 13:48 | Outpatient (CLI) | payer MEDICARE ==
[2020-03-23] MEDS ORDERED: IOVERSOL 320 50 ML VIAL ONE (14:01)
[2020-03-23] MEDS ORDERED: IOVERSOL 320 100 ML VIAL IVP ONE ×2 (14:01→15:34)
[2020-03-23 14:15] LABS: CALCIUM 9.6 mg/dL (8.5-10.3); CREATININE 0.6 mg/dL (0.4-1.0)
[2020-03-23] MEDS ORDERED: IOVERSOL 320 50 ML VIAL PO ONE (15:34)
--- NOTE | 2020-03-23 16:28 | CT Report ---
PROCEDURE: Abdomen/Pelvis W INDICATIONS: LIVER MASS, ADNEXAL MASS CONTRAST: IV CONTRAST: Optiray 320 ml: 100 PO CONTRAST: Optiray 320 ml50 TECHNIQUE: After the administration of oral and intravenous contrast, 5 mm thick sections acquired from the diap hragms to the symphysis. 5 mm thick coronal and sagittal reformats were acquired. For radiation dos e reduction, the following was used: automated exposure control, adjustment of mA and/or kV accordin g to patient size. COMPARISON: Abdominal and pelvic ultrasound 10/21/2019. CT pulmonary angiogram 09/29/2019. CT abdomen a nd pelvis 09/05/2019. FINDINGS: Image quality: Excellent. ABDOMEN: Lung bases: Lung bases are clear. Heart size is normal. Small hiatal hernia. Solid organs: Liver and spleen are normal in size. Segment 7 subcapsular hypodensity measuring 0.8 c m, (06/05), previously 0.9 cm. This appears well-circumscribed on the coronal images. No enhancement a ppreciated on this portal venous phase. Gallbladder is nondistended. No calcified gallstones. Biliar y system is non dilated. Pancreas enhances normally. No adrenal nodules or mass. Kidneys demonstra te normal size and enhancement, without hydronephrosis. No obvious kidney stones. Peritoneum and bowel: Bowel loops demonstrate normal wall thickness and caliber. The appendix is at the upper limits of normal in caliber measuring 7 mm but is gas-filled. No convincing periappendiceal inflammatory change. No free fluid or air. Nodes and vessels: No retroperitoneal or mesenteric adenopathy by size criteria. Aorta and inferior vena cava are normal in size. Miscellaneous: No ventral hernias. PELVIS: Genitourinary: Bladder wall thickness is normal. Left ovarian homogeneous appearing cyst measuring 3 cm, (), previously 3 cm on 09/05/2019. Suspect small subserosal posterior uterine fibroid, unchan ged. Miscellaneous: No inguinal hernias or adenopathy. Bones: No suspicious bony lesions. Possible intraosseous hemangioma at L5, unchanged. No vertebral body compression fractures. IMPRESSION: 1. Segment 7 subcapsular subcentimeter hypodense focus is unchanged since August 2019. This appears wel l-circumscribed on the coronal images and likely represents a benign cyst or hemangioma. -If remote cross-sectional imaging can be acquired long-term stability may be able to be demonstrated . -Follow-up CT abdomen with IV contrast or multiphase three-phase liver CT could also be utilized to d emonstrate stability or for further evaluation. -MRI of the liver with IV contrast could be considered to most definitive further characterize if cli nically indicated. 2. Left ovarian cyst measuring 3 cm is unchanged since August 2019. This appeared simple on the prior u ltrasound. 3. Possible small uterine fibroid which is unchanged. Alternatively this could represent trace free f luid in the pelvis. Reviewed by: Augusto Ovalles MD on 03/23/2020 3:27 PM AKST Approved by: Augusto Ovalles MD on 03/23/2020 3:27 PM AK Station ID: [id number]
== END 2020-03-23 13:49 | disposition home or self-care (01) ==
LOC: DI 13:48
PROVIDERS: ATTEND Family Medicine
DX: N83.202 Unspecified ovarian cyst, left side (principal); R93.5 Abnormal findings on diagnostic imaging of other abdominal regions, including retroperitoneum; M13.0 Polyarthritis, unspecified; D64.9 Anemia, unspecified; E87.6 Hypokalemia
CPT/HCPCS: 36415; 74177; 80048; Q9967

== ENCOUNTER 2020-05-11 12:44 | Outpatient (CLI) | payer MEDICARE ==
--- NOTE | 2020-05-11 15:28 | DEXA Report ---
PROCEDURE: Dexa Spine and/or Hip INDICATIONS: POST MENOPAUSAL STATUS TECHNIQUE: Dual energy x-ray absorptiometry (DXA) was performed on a [employer] System. Regions measur ed are the AP Spine, femoral neck, and if needed forearm. COMPARISON: None. FINDINGS: Lumbar Spine: Bone Mineral Density 1.202 g/cm/cm,T score 0.2 Left Femoral Neck: Bone Mineral Density 0.710 g/cm/cm, T score -2.4 (T score greater or equal to -1.0: NORMAL) (T score from -1.1 to -2.4: OSTEOPENIA) (T score less than or equal to -2.5 to: OSTEOPOROSIS) Impression: Osteopenia Patients with diagnosis of osteoporosis or osteopenia should have regular bone mineral density assess ment. For those eligible for Medicare, routine testing is allowed once every 2 years. Testing frequ ency can be increased for patients who have rapidly progressing disease or for those who are receivin g medical therapy to restore bone mass. Reviewed by: Barron Finch MD on 05/11/2020 3:27 PM PST Approved by: Barron Finch MD on 05/11/2020 3:27 PM PST Station ID: [id number]
== END 2020-05-11 12:45 | disposition home or self-care (01) ==
LOC: DI 12:44
PROVIDERS: ATTEND Internal Medicine
DX: M85.89 Other specified disorders of bone density and structure, multiple sites (principal); Z78.0 Asymptomatic menopausal state

== ENCOUNTER 2020-08-18 09:59 | Outpatient (CLI) | payer MEDICARE ==
[2020-08-18 15:26] LABS: BASOPHILS # (AUTO) 0.1 10^3/uL (0.0-0.1); EOSINOPHILS # (AUTO) 0.1 10^3/uL (0.0-0.7); EOSINOPHILS % (AUTO) 1.5 %; HCT - HEMATOCRIT 39.6 % (37.0-47.0); HGB - HEMOGLOBIN 12.3 g/dL (12.0-16.0); LYMPHOCYTES # (AUTO) 1.4 10^3/uL (1.5-3.5); LYMPHOCYTES % (AUTO) 24.1 %; MEAN CORPUSCULAR HEMOGLOBIN 28.8 pg (27.0-31.0); MEAN CORPUSCULAR HGB CONC 31.1 g/dL (32.0-36.0); MEAN CORPUSCULAR VOLUME 92.7 fL (81.0-99.0); MEAN PLATELET VOLUME 10.1 fL (7.9-10.8); MONOCYTES # (AUTO) 0.5 10^3/uL (0.0-1.0); MONOCYTES % (AUTO) 7.7 %; NEUTROPHILS # (AUTO) 3.9 10^3/uL (1.5-6.6); NEUTROPHILS % (AUTO) 65.5 %; PLT - PLATELET COUNT 307 10^3/uL (130-450); RED BLOOD COUNT 4.27 10^6/uL (4.20-5.40); RED CELL DISTRIBUTION WIDTH 14.9 % (12.0-15.0); WHITE BLOOD COUNT 5.9 x10^3/uL (4.8-10.8)
[2020-08-18 15:49] LABS: ALBUMIN 4.3 g/dL (3.2-5.5); ALBUMIN/GLOBULIN RATIO 1.4 (1.0-2.2); CALCIUM 9.8 mg/dL (8.5-10.3); CREATININE 0.6 mg/dL (0.4-1.0); POTASSIUM 3.4 mmol/L (3.5-5.0); TOTAL PROTEIN 7.4 g/dL (6.7-8.2)
== END 2020-08-18 10:00 | disposition home or self-care (01) ==
LOC: LAB.S 09:59
PROVIDERS: ATTEND Internal Medicine
DX: I10 Essential (primary) hypertension (principal); E87.6 Hypokalemia; M85.80 Other specified disorders of bone density and structure, unspecified site
CPT/HCPCS: 36415; 80053; 82306; 85025

== ENCOUNTER 2021-02-23 10:03 | Outpatient (CLI) | payer MEDICARE ==
[2021-02-23 15:13] LABS: BASOPHILS # (AUTO) 0.1 10^3/uL (0.0-0.1); BASOPHILS % (AUTO) 1.3 %; EOSINOPHILS # (AUTO) 0.2 10^3/uL (0.0-0.7); EOSINOPHILS % (AUTO) 2.9 %; HCT - HEMATOCRIT 38.4 % (37.0-47.0); HGB - HEMOGLOBIN 12.2 g/dL (12.0-16.0); LYMPHOCYTES # (AUTO) 1.3 10^3/uL (1.5-3.5); LYMPHOCYTES % (AUTO) 24.1 %; MEAN CORPUSCULAR HEMOGLOBIN 29.6 pg (27.0-31.0); MEAN CORPUSCULAR HGB CONC 31.8 g/dL (32.0-36.0); MEAN CORPUSCULAR VOLUME 93.2 fL (81.0-99.0); MEAN PLATELET VOLUME 10.3 fL (7.9-10.8); MONOCYTES # (AUTO) 0.5 10^3/uL (0.0-1.0); MONOCYTES % (AUTO) 8.5 %; NEUTROPHILS # (AUTO) 3.5 10^3/uL (1.5-6.6); PLT - PLATELET COUNT 271 10^3/uL (130-450); RED BLOOD COUNT 4.12 10^6/uL (4.20-5.40); RED CELL DISTRIBUTION WIDTH 14.3 % (12.0-15.0); WHITE BLOOD COUNT 5.5 x10^3/uL (4.8-10.8)
[2021-02-23 16:09] LABS: ALBUMIN 4.3 g/dL (3.2-5.5); ALBUMIN/GLOBULIN RATIO 1.7 (1.0-2.2); ALKALINE PHOSPHATASE 83 IU/L (42-121); ALT ALANINE AMINOTRANSFERASE 18 IU/L (10-60); AST ASPARTATE AMINOTRANSFERASE 19 IU/L (10-42); BILIRUBIN,TOTAL 0.8 mg/dL (0.2-1.0); BUN - BLOOD UREA NITROGEN 16 mg/dL (6-20); CALCIUM 9.4 mg/dL (8.5-10.3); CARBON DIOXIDE - CO2 25 mmol/L (21-32); CHLORIDE 103 mmol/L (101-111); CHOL/HDL RATIO 3.4 (<4.4); CHOLESTEROL 249 mg/dL; CREATININE 0.6 mg/dL (0.4-1.0); GFR - MDRD 97 (>89); GLUCOSE 109 mg/dL (70-100); HDL CHOLESTEROL 74 mg/dL; LDL CHOLESTEROL,CALCULATED 161 mg/dL; LDL/HDL RATIO 2.2 (<4.4); POTASSIUM 3.7 mmol/L (3.5-5.0); SODIUM 138 mmol/L (135-145); TOTAL PROTEIN 6.9 g/dL (6.7-8.2); TRIGLYCERIDES 68 mg/dL; VLDL CHOLESTEROL 14 mg/dL
== END 2021-02-23 10:04 | disposition home or self-care (01) ==
LOC: LAB.S 10:03
PROVIDERS: ATTEND Internal Medicine
DX: E87.6 Hypokalemia (principal); E78.5 Hyperlipidemia, unspecified; D64.9 Anemia, unspecified
CPT/HCPCS: 36415; 80053; 80061; 83721; 85025

== ENCOUNTER 2022-03-22 10:13 | Outpatient (CLI) | payer MEDICARE ==
[2022-03-22 14:46] LABS: BASOPHILS # (AUTO) 0.1 10^3/uL (0.0-0.1); BASOPHILS % (AUTO) 1.4 %; EOSINOPHILS # (AUTO) 0.2 10^3/uL (0.0-0.7); EOSINOPHILS % (AUTO) 2.9 %; HCT - HEMATOCRIT 41.5 % (37.0-47.0); HGB - HEMOGLOBIN 12.5 g/dL (12.0-16.0); LYMPHOCYTES # (AUTO) 1.7 10^3/uL (1.5-3.5); LYMPHOCYTES % (AUTO) 24.1 %; MEAN CORPUSCULAR HEMOGLOBIN 28.6 pg (27.0-31.0); MEAN CORPUSCULAR HGB CONC 30.1 g/dL (32.0-36.0); MEAN PLATELET VOLUME 10.4 fL (7.9-10.8); MONOCYTES # (AUTO) 0.5 10^3/uL (0.0-1.0); MONOCYTES % (AUTO) 7.3 %; NEUTROPHILS # (AUTO) 4.4 10^3/uL (1.5-6.6); PLT - PLATELET COUNT 334 10^3/uL (130-450); RED BLOOD COUNT 4.37 10^6/uL (4.20-5.40); RED CELL DISTRIBUTION WIDTH 14.9 % (12.0-15.0); WHITE BLOOD COUNT 6.9 x10^3/uL (4.8-10.8)
[2022-03-22 15:20] LABS: ALBUMIN 4.3 g/dL (3.2-5.5); ALBUMIN/GLOBULIN RATIO 1.3 (1.0-2.2); ALKALINE PHOSPHATASE 94 IU/L (42-121); ALT ALANINE AMINOTRANSFERASE 18 IU/L (10-60); AST ASPARTATE AMINOTRANSFERASE 23 IU/L (10-42); BILIRUBIN,TOTAL 0.8 mg/dL (0.2-1.0); BUN - BLOOD UREA NITROGEN 15 mg/dL (6-20); CALCIUM 9.8 mg/dL (8.5-10.3); CARBON DIOXIDE - CO2 30 mmol/L (21-32); CHLORIDE 100 mmol/L (101-111); CHOL/HDL RATIO 3.3 (<4.4); CHOLESTEROL 264 mg/dL; CREATININE 0.7 mg/dL (0.4-1.0); GFR - MDRD 81 (>89); GLUCOSE 112 mg/dL (70-100); HDL CHOLESTEROL 80 mg/dL; LDL CHOLESTEROL,CALCULATED 171 mg/dL; LDL/HDL RATIO 2.1 (<4.4); POTASSIUM 3.7 mmol/L (3.5-5.0); SODIUM 138 mmol/L (135-145); TOTAL PROTEIN 7.5 g/dL (6.7-8.2); TRIGLYCERIDES 66 mg/dL; VLDL CHOLESTEROL 13 mg/dL
[2022-03-22 15:30] LABS: THYROID STIMULATING HORMONE 3.36 uIU/mL (0.34-5.60)
== END 2022-03-22 10:14 | disposition home or self-care (01) ==
LOC: LAB.S 10:13
PROVIDERS: ATTEND Registered Nurse
DX: I10 Essential (primary) hypertension (principal); E78.5 Hyperlipidemia, unspecified
CPT/HCPCS: 36415; 80053; 80061; 83721; 84443; 85025

== ENCOUNTER 2022-09-12 12:33 | Outpatient (CLI) | payer MEDICARE ==
--- NOTE | 2022-09-12 20:02 | XRAY Report ---
PROCEDURE: Hips 2V BILAT INDICATIONS: ARTHRITIS LEFT HIP TECHNIQUE: AP view the pelvis and lateral views of the right and left hips. COMPARISON: CT abdomen/pelvis 03/23/2020, left hip radiographs 11/03/2017 FINDINGS: Bones: No acute fractures or dislocations. No suspicious bony lesions. Severe joint space narrowi ng is seen at the superior aspect of the left hip with subchondral sclerosis, marginal osteophyte for mation, subchondral cystic changes, and remodeling of the articular surfaces. Findings appear mildly progressed when compared to the CT from 03/23/2020. Minimal degenerative changes are seen in the contra lateral right hip. Degenerative changes are noted in the included lumbar spine. Mild left sacroiliac joint osteoarthrosis. Soft tissues: No suspicious soft tissue calcifications or masses. IMPRESSION: 1.Severe asymmetric left hip osteoarthrosis, progressed when compared to radiographs from 11/03/2017. 2.Mild right hip osteoarthrosis. 3.Degenerative changes in the included spine. Reviewed by: Jake Mcqueen MD on 09/12/2022 8:01 PM PDT Approved by: Jake Mcqueen MD on 09/12/2022 8:01 PM PDT Station ID: [id number]
== END 2022-09-12 12:34 | disposition home or self-care (01) ==
LOC: DI 12:33
PROVIDERS: ATTEND Physical Medicine & Rehabilitation
DX: M16.0 Bilateral primary osteoarthritis of hip (principal); M47.816 Spondylosis without myelopathy or radiculopathy, lumbar region; M47.818 Spondylosis without myelopathy or radiculopathy, sacral and sacrococcygeal region

== ENCOUNTER 2023-02-14 14:18 | Outpatient (CLI) | payer MEDICARE ==
--- NOTE | 2023-02-14 20:30 | DEXA Report ---
PROCEDURE: Dexa Spine and/or Hip INDICATIONS: POST MENOPAUSAL TECHNIQUE: Dual energy x-ray absorptiometry (DXA) was performed on a [employer] System. Regions measur ed are the AP Spine, femoral neck, and if needed forearm. COMPARISON: 05/11/2020 FINDINGS: Lumbar Spine: Bone Mineral Density 1.228 g/cm/cm,T score 0.5. Since the most recent prior study, there has been a statistically significant increase in bone mineral density by 4.9 percent. Left Femoral Neck: Bone Mineral Density 0.796 g/cm/cm, T score -1.7. Left Hip: Bone Mineral Density 0.706 g/cm/cm,T score -2.4. There has been no statistically significant change i n bone mineral density since the prior study. (T score greater or equal to -1.0: NORMAL) (T score from -1.1 to -2.4: OSTEOPENIA) (T score less than or equal to -2.5 to: OSTEOPOROSIS) Impression: By WHO criteria, this patient has low bone density (osteopenia). Interval statistical increase in bone minteral density of the lumbar spine. No statistical interval c hange in bone minteral density of the hip. Patients with diagnosis of osteoporosis or osteopenia should have regular bone mineral density assess ment. For those eligible for Medicare, routine testing is allowed once every 2 years. Testing frequ ency can be increased for patients who have rapidly progressing disease or for those who are receivin g medical therapy to restore bone mass. Reviewed by: Jake Mcqueen MD on 02/14/2023 8:28 PM PST Approved by: Jake Mcqueen MD on 02/14/2023 8:28 PM PST Station ID: [id number]
== END 2023-02-14 14:19 | disposition home or self-care (01) ==
LOC: DI 14:18
PROVIDERS: ATTEND Registered Nurse
DX: Z78.0 Asymptomatic menopausal state (principal); M85.80 Other specified disorders of bone density and structure, unspecified site

== ENCOUNTER 2023-03-22 10:23 | Outpatient (CLI) | payer MEDICARE ==
[2023-03-22 14:51] LABS: BASOPHILS # (AUTO) 0.1 10^3/uL (0.0-0.1); BASOPHILS % (AUTO) 0.8 %; EOSINOPHILS # (AUTO) 0.1 10^3/uL (0.0-0.7); EOSINOPHILS % (AUTO) 1.7 %; HGB - HEMOGLOBIN 10.8 g/dL (12.0-16.0); LYMPHOCYTES # (AUTO) 1.5 10^3/uL (1.5-3.5); LYMPHOCYTES % (AUTO) 23.5 %; MEAN CORPUSCULAR HEMOGLOBIN 25.8 pg (27.0-31.0); MEAN CORPUSCULAR HGB CONC 29.2 g/dL (32.0-36.0); MEAN CORPUSCULAR VOLUME 88.3 fL (81.0-99.0); MEAN PLATELET VOLUME 10.6 fL (7.9-10.8); MONOCYTES # (AUTO) 0.5 10^3/uL (0.0-1.0); MONOCYTES % (AUTO) 7.8 %; NEUTROPHILS # (AUTO) 4.2 10^3/uL (1.5-6.6); PLT - PLATELET COUNT 313 10^3/uL (130-450); RED BLOOD COUNT 4.19 10^6/uL (4.20-5.40); RED CELL DISTRIBUTION WIDTH 16.6 % (12.0-15.0); WHITE BLOOD COUNT 6.4 x10^3/uL (4.8-10.8)
[2023-03-22 15:31] LABS: BILIRUBIN,URINE NEGATIVE (NEGATIVE); GLUCOSE, URINE (UA) NEGATIVE (NEGATIVE); KETONES,URINE (UA) NEGATIVE (NEGATIVE); LEUKOCYTE ESTERASE, URINE SMALL (NEGATIVE); NITRITE,URINE NEGATIVE (NEGATIVE); OCCULT BLOOD,URINE NEGATIVE (NEGATIVE); PROTEIN,URINE NEGATIVE (NEGATIVE); UROBILINOGEN,URINE 0.2 (NORMAL) E.U./dL (NORMAL)
[2023-03-22 15:35] LABS: CLARITY,URINE CLEAR (CLEAR)
[2023-03-22 15:54] LABS: BACTERIA,URINE Moderate /HPF (None Seen); RBC,URINE None Seen /HPF (0-5); SQUAMOUS EPITHELIAL CELL,UR RARE Squamous (<= Few); WBC,URINE 0-3 /HPF (0-5)
[2023-03-22 16:50] LABS: ALBUMIN 4.4 g/dL (3.2-5.5); ALBUMIN/GLOBULIN RATIO 1.8 (1.0-2.2); BILIRUBIN,TOTAL 0.6 mg/dL (0.2-1.0); CALCIUM 9.7 mg/dL (8.5-10.3); CREATININE 0.7 mg/dL (0.6-1.3); TOTAL PROTEIN 6.9 g/dL (6.4-8.9)
[2023-03-22 16:54] LABS: CHOL/HDL RATIO 3.3 (<4.4); CHOLESTEROL 240 mg/dL; HDL CHOLESTEROL 72 mg/dL; LDL CHOLESTEROL,CALCULATED 153 mg/dL; LDL/HDL RATIO 2.1 (<4.4); TRIGLYCERIDES 75 mg/dL (48-352); VLDL CHOLESTEROL 15 mg/dL
[2023-03-22 17:35] LABS: ESTIMATED AVERAGE GLUCOSE 117 mg/dL (70-100); HEMOGLOBIN A1c% 5.7 % (4.27-6.07)
[2023-03-22 17:53] LABS: THYROID STIMULATING HORMONE 2.22 uIU/mL (0.34-5.60)
== END 2023-03-22 10:24 | disposition home or self-care (01) ==
LOC: LAB.S 10:23
PROVIDERS: ATTEND Registered Nurse
DX: Z01.812 Encounter for preprocedural laboratory examination (principal); E78.5 Hyperlipidemia, unspecified; I10 Essential (primary) hypertension; Z13.9 Encounter for screening, unspecified; N39.0 Urinary tract infection, site not specified; R73.9 Hyperglycemia, unspecified
CPT/HCPCS: 36415; 80053; 80061; 81001; 83036; 83721; 84443; 85025; 87086

== ENCOUNTER 2023-07-31 12:51 | Outpatient (CLI) | payer MEDICARE ==
--- NOTE | 2023-07-31 17:11 | XRAY Report ---
Chest 2V HISTORY: FOCAL PNEUMONIA COMPARISON: 10/07/2019. TECHNIQUE: 2 views of the chest are submitted for interpretation. FINDINGS/IMPRESSION: No pleural effusion, pneumothorax, or pulmonary edema. Mild left retrocardiac opacity with obscuratio n of the left hemidiaphragm, concerning for pneumonia. Recommend follow-up in 2-3 weeks to document r esolution and exclude underlying mass. Normal cardiomediastinal silhouette. Reviewed by: Christina Singleton MD on 07/31/2023 5:10 PM PDT Approved by: Christina Singleton MD on 07/31/2023 5:10 PM PDT Station ID: [id number]
== END 2023-07-31 12:52 | disposition home or self-care (01) ==
LOC: DI.S 12:51
PROVIDERS: ATTEND Emergency Medicine
DX: J18.8 Other pneumonia, unspecified organism (principal)

== ENCOUNTER 2023-08-12 07:00 | Outpatient (CLI) | payer MEDICARE ==
--- NOTE | 2023-08-12 15:44 | XRAY Report ---
PROCEDURE: Chest 2V INDICATIONS: FOCAL PNEUMONIA TECHNIQUE: 2 views of the chest were acquired. COMPARISON: 07/31/2023. FINDINGS: Surgical changes and devices: None. Lungs and pleura: Blunting of the left gastric angle. Mediastinum: Mediastinal contours appear normal. Heart size is normal. Bones and chest wall: No suspicious bony lesions. Overlying soft tissues appear unremarkable. IMPRESSION: Blunting of the left costophrenic angle is more pronounced than prior, may represent small effusion, atelectasis or consolidation. Recommend follow-up in 6 weeks to document resolution. Reviewed by: Neftali Seo MD on 08/12/2023 2:43 PM TG Approved by: Neftali Seo MD on 08/12/2023 2:43 PM AKCARLI Station ID: [id number]
== END 2023-08-12 23:59 | disposition home or self-care (01) ==
LOC: DI.S 07:00
PROVIDERS: ATTEND Physician Assistant Medical
DX: J18.8 Other pneumonia, unspecified organism (principal)

== ENCOUNTER 2023-11-28 08:00 | Outpatient (CLI) | payer MEDICARE | END 2023-11-28 23:59 | disposition home or self-care (01) | LOC: LAB.N 08:00 | PROVIDERS: ATTEND Registered Nurse | DX: R82.79 Other abnormal findings on microbiological examination of urine (principal); R10.32 Left lower quadrant pain; M54.9 Dorsalgia, unspecified | CPT/HCPCS: 87086 ==

== ENCOUNTER 2023-11-29 13:05 | Outpatient (CLI) | payer MEDICARE ==
[2023-11-29 13:17] LABS: BASOPHILS # (AUTO) 0.1 10^3/uL (0.0-0.1); BASOPHILS % (AUTO) 1.3 %; EOSINOPHILS # (AUTO) 0.2 10^3/uL (0.0-0.7); EOSINOPHILS % (AUTO) 3.2 %; HGB - HEMOGLOBIN 9.3 g/dL (12.0-16.0); LYMPHOCYTES % (AUTO) 28.3 %; MEAN CORPUSCULAR HEMOGLOBIN 22.2 pg (27.0-31.0); MEAN CORPUSCULAR HGB CONC 28.2 g/dL (32.0-36.0); MEAN CORPUSCULAR VOLUME 78.9 fL (81.0-99.0); MEAN PLATELET VOLUME 9.5 fL (7.9-10.8); MONOCYTES # (AUTO) 0.6 10^3/uL (0.0-1.0); MONOCYTES % (AUTO) 8.9 %; NEUTROPHILS # (AUTO) 4.1 10^3/uL (1.5-6.6); NEUTROPHILS % (AUTO) 58.2 %; PLT - PLATELET COUNT 329 10^3/uL (130-450); RED BLOOD COUNT 4.18 10^6/uL (4.20-5.40); RED CELL DISTRIBUTION WIDTH 19.2 % (12.0-15.0); WHITE BLOOD COUNT 7.1 x10^3/uL (4.8-10.8)
[2023-11-29 13:30] LABS: ALBUMIN 4.3 g/dL (3.2-5.5); ALKALINE PHOSPHATASE 85 IU/L (42-121); ALT ALANINE AMINOTRANSFERASE 11 IU/L (10-60); AST ASPARTATE AMINOTRANSFERASE 14 IU/L (10-42); BILIRUBIN,TOTAL 0.4 mg/dL (0.2-1.0); BUN - BLOOD UREA NITROGEN 19 mg/dL (6-20); CALCIUM 9.4 mg/dL (8.5-10.3); CARBON DIOXIDE - CO2 30 mmol/L (21-32); CHLORIDE 102 mmol/L (101-111); CREATININE 0.7 mg/dL (0.6-1.3); CRP - C-REACTIVE PROTEIN < 0.5 mg/dL (<0.5); GFR - MDRD 81 (>89); GLUCOSE 95 mg/dL (74-104); LIPASE 11 U/L (11-82); POTASSIUM 4.3 mmol/L (3.5-4.5); SODIUM 136 mmol/L (135-145); TOTAL PROTEIN 6.4 g/dL (6.4-8.9)
== END 2023-11-29 13:06 | disposition home or self-care (01) ==
LOC: LAB 13:05
PROVIDERS: ATTEND Registered Nurse
DX: R82.79 Other abnormal findings on microbiological examination of urine (principal); R10.32 Left lower quadrant pain; M54.89 Other dorsalgia
CPT/HCPCS: 36415; 80053; 83690; 85025; 86140

== ENCOUNTER 2023-12-11 13:00 | Outpatient (CLI) | payer MEDICARE ==
[2023-12-11] MEDS ORDERED: iohexoL-300 100 ML VIAL ONE (13:04)
[2023-12-11] MEDS ORDERED: DIATRIZOATE MEGLU/DIATRIZO SOD 30 ML BOTTLE PO ONE (13:04)
[2023-12-11] MEDS: iohexoL-300 100 ML VIAL IVP ONE (16:49)
[2023-12-11] MEDS: BARIUM SULFATE 450 ML ORAL.SUSP PO ONE (16:49)
--- NOTE | 2023-12-11 17:38 | CT Report ---
PROCEDURE: Abdomen/Pelvis W INDICATIONS: LLQ PAIN CONTRAST: 100ml [id number] TECHNIQUE: After the administration of intravenous contrast, a CT scan of the abdomen and pelvis was performed. Images were recorded and evaluated at appropriate window settings. Reformats: coronal and sagittal. F or radiation dose reduction, the following was used: automated exposure control, adjustment of mA and /or kV according to patient size. COMPARISON: 03/23/2020 FINDINGS: Lower Chest: Within normal limits. Liver: Mild hepatic steatosis. Subcentimeter hypoattenuating lesion in hepatic segment 7 (2:24), unch anged from prior exam and is too small to be characterized. Gallbladder: unremarkable Pancreas: Within normal limits. Spleen: Within normal limits. Adrenal Glands: Within normal limits. Right kidney:Hypoattenuating lesion(s), too small to be characterized, but statistically likely to re present renal cyst(s). No hydronephrosis or renal stone. Left kidney:Hypoattenuating lesion(s), too small to be characterized, but statistically likely to rep resent renal cyst(s). No hydronephrosis or renal stone. Bladder: Unremarkable Reproductive organ: The uterus is present. The right ovary is not definitively visualized. 3.0 cm lef t ovarian cyst, unchanged from prior exam. GI Tract: Normal in course and caliber. Scattered colonic diverticulosis. No diverticulitis. No bowel obstruction. Appendix is Normal. Aorta: Moderate atherosclerotic calcification of the abdominal aorta and its side branches. No abdomi nal aortic aneurysm. Peritoneum/Retroperitoneum: No ascites. No abdominal or pelvic lymphadenopathy. Abdominal/Pelvic Wall: Within normal limits. Bones: Moderate levoscoliosis of the lumbar spine. Multilevel, moderate degenerative disc disease of the lumbar spine. IMPRESSION: No acute finding in the abdomen and pelvis. Additional chronic findings described above. Reviewed by: Christina Singleton MD on 12/11/2023 5:36 PM PDT Approved by: Christina Singleton MD on 12/11/2023 5:36 PM PDT Station ID: [id number]
== END 2023-12-11 13:01 | disposition home or self-care (01) ==
LOC: DI 13:00
PROVIDERS: ATTEND Registered Nurse
DX: R10.32 Left lower quadrant pain (principal); M54.89 Other dorsalgia
CPT/HCPCS: 74177; A9270; Q9967